=== PATIENT | male | born 1965 | race African-American/Black ===

== ENCOUNTER 2020-08-25 12:09 | Emergency (ER) | payer MEDICAID ==
[~2020-08-25] VITALS: Ht 188 cm; Wt 91.0 kg
[2020-08-25] MEDS ORDERED: IBUPROFEN 600MG TABLET PO STA (12:23)
[2020-08-25] MEDS ORDERED: ACETAMINOPHEN 325MG TABLET PO STA (12:23)
[2020-08-25] MEDS ORDERED: SODIUM CHLORIDE 0.9% 1000ML BAG (SEPSIS BOLUS) IV ONE (12:30)
[2020-08-25] MEDS ORDERED: CEFTRIAXONE 1 G PREMIX 50 ML IV ONE (12:30)
[2020-08-25 13:25] LABS: HEMATOCRIT. 35.8 % (42.0-52.0); HEMOGLOBIN. 11.6 g/dL (14.0-18.0); MEAN CORPUSCULAR HEMOGLOBIN 26.9 pg (28.0-32.0); MEAN CORPUSCULAR VOLUME 82.7 fL (80.0-94.0); MEAN PLATELET VOLUME 6.9 fl (7.4-10.4); PLATELET 299 x1000/uL (130-400); RED BLOOD CELL COUNT 4.33 mill/uL (4.7-6.1); RED CELL DISTRIBUTION WIDTH 16.1 % (11.6-14.6)
[2020-08-25 13:30] LABS: CHLORIDE 106 mEq/L (98-107)
[2020-08-25 13:34] LABS: PROTHROMBIN TIME 11.2 sec (9.6-11.0)
[2020-08-25 13:39] LABS: CLARITY URINE CLEAR (CLEAR); COLOR URINE YELLOW (YELLOW); KETONES URINE NEGATIVE (NEGATIVE); LEUKOCYTE ESTERASE URINE NEGATIVE (NEGATIVE); NITRITE URINE NEGATIVE (NEGATIVE); OCCULT BLOOD URINE TRACE (NEGATIVE); PROTEIN URINE 1+ (NEGATIVE); SPECIFIC GRAVITY URINE 1.012 (1.005-1.030); UROBILINOGEN URINE 0.2 E.U./dL (0.2-1.0)
[2020-08-25 14:14] LABS: PLATELET ESTIMATE NORMAL
[2020-08-25 14:20] LABS: *AMPHETAMINES SCREEN URINE NEGATIVE (NEGATIVE); *BARBITURATES SCREEN URINE NEGATIVE (NEGATIVE); *BENZODIAZEPINES SCREEN URINE NEGATIVE (NEGATIVE); *COCAINE SCREEN URINE PRESUMTIVE POSITIVE (NEGATIVE); CANNABINOID URINE SCREEN NEGATIVE (NEGATIVE); METHADONE URINE SCREEN NEGATIVE (NEGATIVE); OPIATES URINE SCREEN NEGATIVE (NEGATIVE); PHENCYCLIDINE URINE SCREEN NEGATIVE (NEGATIVE)
[2020-08-25] MEDS ORDERED: SULF1TAB48 MT (17:41)
[2020-08-25] MEDS ORDERED: CEPH250C2 MT (17:41)
[2020-08-25 18:21] VITALS: BP 116/74
== END 2020-08-25 18:32 | disposition home or self-care (01) ==
LOC: ER 12:20 → CANBEDREQ 18:00 → ER 18:32
DX: R50.9 Fever, unspecified (principal); R05 Cough; Z20.822 Contact with and (suspected) exposure to COVID-19; L03.115 Cellulitis of right lower limb; I10 Essential (primary) hypertension; E11.9 Type 2 diabetes mellitus without complications; E78.00 Pure hypercholesterolemia, unspecified
CPT/HCPCS: 36415; 71045; 73630; 80053; 80305; 81003; 83605; 84145; 84484; 85025; 85610; 87040; 87086; 96365; 96366; 99285; C9803; J0696; J7030; U0003